=== PATIENT | female | born 1995 | race Caucasian/White ===

== ENCOUNTER → 2018-10-17 | Outpatient (CLI) | payer BC ==
--- NOTE | 2018-10-21 11:53 | CPEEG ---
[f rep st] ELECTROENCEPHALOGRAM DATE OF STUDY: 10/17/2018 DATE OF INTERPRETATION: 10/21/2018 INTERPRETATION: Normal EEG during wakefulness and sleep. There were no potentially epileptogenic ab normalities present during the recording. REPORT: This EEG contains 10 Hz alpha activity over the posterior head regions. There was no abnorm al activation at rest, during photic stimulation or hyperventilation. The patient became drowsy and fell asleep during the study. There was no abnormal activation during drowsiness, sleep, or during t imes of arousal. /[id number]/MODL
== END ==
LOC: FCPNEURO 14:35
PROVIDERS: ATTEND Psychiatry & Neurology Neurology
DX: H53.9 Unspecified visual disturbance (principal); F48.8 Other specified nonpsychotic mental disorders

== ENCOUNTER → 2018-10-21 | Outpatient (CLI) | payer BC | LOC: FIMAGING 16:01 | PROVIDERS: ATTEND Psychiatry & Neurology Neurology | DX: H53.9 Unspecified visual disturbance (principal); F48.8 Other specified nonpsychotic mental disorders | CPT/HCPCS: 70551-PN ==